=== PATIENT | male | born 1970 | race Asian ===

== ENCOUNTER 2021-05-01 10:42 | Outpatient (CLI) | payer BC ==
--- NOTE | 2021-05-01 13:48 | XRAY Report ---
PROCEDURE: Ankle 3 View RT INDICATIONS: R ANKLE PX TECHNIQUE: 3 views of the ankle were acquired. COMPARISON: None FINDINGS: Bones: No fractures or dislocations. There are degenerative changes along the medial joint space. Th e foot is incompletely evaluated, however the visualized portion appears to demonstrate pes planus. Ankle mortise is normally aligned. No suspicious bony lesions. Soft tissues: Soft tissue swelling over the medial malleolus. Achilles tendon appears normal. IMPRESSION: 1. No acute abnormality of the right ankle. 2. Soft tissue swelling over the medial malleolus suspicious for medial ligamentous injury. Reviewed by: Brent Maxwell on 05/01/2021 1:47 PM PST Approved by: Brent Maxwell on 05/01/2021 1:47 PM PST Station ID: [id number]
== END 2021-05-01 23:59 | disposition home or self-care (01) ==
LOC: DI.N 10:42
PROVIDERS: ATTEND Family Medicine
DX: M25.571 Pain in right ankle and joints of right foot (principal)